=== PATIENT | male | born 1945 | race Caucasian/White ===

== ENCOUNTER 2017-06-08 04:13 | Observation (INO) ==
[2017-06-08] MEDS ORDERED: Aspirin 81 MG TAB.CHEW PO ONE (04:22)
[2017-06-08 04:45] LABS: Basophils % 0.3 %; Eosinophils # 0.3 K/mcL (0.0-0.6); Eosinophils % 3.3 %; Hematocrit 44.4 % (37.5-50.1); Hemoglobin 14.6 g/dL (12.9-16.9); Immature Granulocytes % 0.6 % (0-4); Lymphocytes # 1.7 K/mcL (0.6-4.6); Lymphocytes % 16.4 %; Mean Corpuscular HGB Conc 32.9 g/dL (31.6-35.5); Mean Corpuscular Volume 91.2 fL (83.0-100.0); Mean Platelet Volume 9.9 fL (9.4-12.4); Monocytes # 1.1 K/mcL (0.0-1.3); Monocytes % 10.2 %; Neutrophils # 7.1 K/mcL (1.6-8.9); Platelet Count 301 K/mcL (140-400); Red Blood Count 4.87 M/mcL (4.19-5.50); Red Cell Distribution Width 13.3 % (11.5-14.5); Segmented Neutrophils % 69.2 %
--- NOTE | 2017-06-08 04:46 | Emergency Department Note ---
Disposition Clinical Impression: Congestive heart failure Qualifiers: Heart failure type: combined systolic and diastolic Heart failure chronicity: acute on chronic Qualified Code(s): I50.43 - Acute on chronic combined systolic (congestive) and diastolic (congestive) heart failure Disposition: Still a Patient Referrals: Joe Crystal MD [Primary Care Provider] - Forms: ED Satisfaction Letter General Adult HPI - General Chief complaint: ED Shortness of Breath/Dyspnea Stated complaint: CHEST PAIN, JUMANA Time Seen by Provider: 06/08/17 04:22 Source: patient Limitations: no limitations - History of Present Illness Pain Scale: 0 - Related Data Home Medications Medication Instructions Recorded Confirmed Amlodipine Besylate 10 mg PO DAILY 03/01/16 03/01/16 Aspirin 81 mg PO HS 03/01/16 03/01/16 Atorvastatin Calcium [Lipitor] 80 mg PO HS 03/01/16 03/01/16 Carvedilol 12.5 mg PO BID 03/01/16 03/01/16 Clopidogrel [Plavix] 75 mg PO DAILY 03/01/16 03/01/16 Lactobacillus Combination No.8 1 tab PO DAILY 03/01/16 03/01/16 [Adult Probiotic] Lisinopril/Hydrochlorothiazide 1 each PO HS 03/01/16 03/01/16 [Zestoretic 20-25 mg Tablet] Nitroglycerin 0.4 mg SL Q5M PRN 03/01/16 03/01/16 metFORMIN [Glucophage] 750 mg PO BID 03/01/16 03/01/16 Allergies Allergy/AdvReac Type Severity Reaction Status Date / Time No Known Allergies Allergy Verified 03/01/16 09:26 Past Medical History - Past Medical History Medical history: Reports: coronary artery disease, diabetes, hyperlipidemia, hypertension, myocardial infarction, other Psychiatric history: Reports: no psych history - Social History Smoking Status: Former smoker Smokeless Tobacco Status: No Alcohol use: Reports: none Drug use: Reports: none Physical Exam - General Limitations: no limitations General appearance: alert Course - Reevaluation(s) Reevaluation #1: Attestation note I examined this patient and my medical decision-making was reviewed with the emergency medicine resident. I agree with the documented findings, disposition and treatment plan as described except to the extent set forth below. Patient seen with emergency medicine resident Dr. Moris Alves, Please see a copy of his note for details of the H&P, ED evaluation, management and disposition. I have independently evaluated the patient and confirmed appropriate portions of the history and physical exam. Briefly: 72-year-old male history of hypertension hypercholesterolemia coronary artery disease with for possibly 5 cardiac stents. The past several days patient's experiencing paroxysmal nocturnal dyspnea worsening dyspnea on exertion with decreased exercise tolerance. Episode of chest pain about a day or so ago which resolved with nitroglycerin. Here for further evaluation. Patient does not have any pedal edema does have bibasilar rales. EKG shows some T-wave inversion that is new compared to prior EKG in the lateral leads. Patient get aspirin and troponin oxygen screening labs chest x-ray and admission. Disposition pending Time: 04:45 Vital Signs Temperature 97.5 F L 06/08/17 04:14 Pulse Rate 67 06/08/17 04:14 Respiratory Rate 23 06/08/17 04:14 Blood Pressure 198/109 06/08/17 04:14 O2 Sat by Pulse Oximetry 96 06/08/17 04:14 Temperature 97.5 F L 06/08/17 04:14 Pulse Rate 67 06/08/17 04:14 Respiratory Rate 23 06/08/17 04:14 Blood Pressure 198/109 06/08/17 04:14 O2 Sat by Pulse Oximetry 96 06/08/17 04:14 Oxygen Delivery Oxygen Delivery Room Air
--- NOTE | 2017-06-08 04:47 | Emergency Department Note ---
Disposition Clinical Impression: Chest pain of uncertain etiology, Elevated troponin Acute exacerbation of CHF (congestive heart failure) Qualifiers: Heart failure type: unspecified Qualified Code(s): I50.9 - Heart failure, unspecified Disposition: Home, Self-Care Condition: Serious Referrals: Joe Crystal MD [Primary Care Provider] - Forms: ED Satisfaction Letter Time of Disposition: 06:07 Chest Pain HPI - General Chief Complaint: ED Shortness of Breath/Dyspnea Stated Complaint: CHEST PAIN, JUMANA Time Seen by Provider: 06/08/17 04:22 Source: patient Limitations: no limitations Vital Signs Reviewed: Yes Nursing Notes Reviewed: Yes - History of Present Illness HPI Narrative: Mr. Denton, 72 old male, presents from home for evaluation of dyspnea and chest pain. Patient had a single episode of chest pain approximately 24 hours ago. Described as a general substernal dullness, nonradiating, improved with a single sublingual nitroglycerin, no diaphoresis, similar to him at his prior RI. Dyspnea has been progressive for the past 4 days. Associated with dry cough. He notes worsened when laying flat. Unchanged prior to, during, and after his chest pain. PMH: Hypertension, hyperlipidemia, type 2 diabetes on oral antihyperglycemic. CAD with RI in 2015, aspirin and Plavix, 5 stents. Patient has an umbilical hernia that is well known to him for which he has no concerns. ROS: Positive: As above Negative: Fever, chills, nausea, vomiting, palpitations, abdominal pain, weakness, numbness, tingling, change in bowel or bladder, abdominal pain Severity scale (1-10): 0 - Related Data Home Medications Medication Instructions Recorded Confirmed Amlodipine Besylate 10 mg PO DAILY 03/01/16 03/01/16 Aspirin 81 mg PO 03/01/16 03/01/16 Atorvastatin Calcium [Lipitor] 80 mg PO 03/01/16 03/01/16 Carvedilol 12.5 mg PO BID 03/01/16 03/01/16 Clopidogrel [Plavix] 75 mg PO DAILY 03/01/16 03/01/16 Lactobacillus Combination No.8 1 tab PO DAILY 03/01/16 03/01/16 [Adult Probiotic] Lisinopril/Hydrochlorothiazide 1 each PO 03/01/16 03/01/16 [Zestoretic 20-25 mg Tablet] Nitroglycerin 0.4 mg SL Q5M PRN 03/01/16 03/01/16 metFORMIN [Glucophage] 750 mg PO BID 03/01/16 03/01/16 Allergies Allergy/AdvReac Type Severity Reaction Status Date / Time No Known Allergies Allergy Verified 03/01/16 09:26 All systems ED: reviewed and negative except as stated. Review of Systems: As Per HPI Chest Pain PMH - Past Medical History Medical history: Reports: coronary artery disease, diabetes, hyperlipidemia, hypertension, myocardial infarction, other Psychiatric history: Reports: no psych history - Social History Smoking Status: Former smoker Alcohol use: Reports: none Drug use: Reports: none Physical Exam Vital Signs Reviewed General: Patient is alert, oriented, and in no acute distress. Head: atraumatic, normocephalic Eye: normal appearance, no scleral icterus, no conjunctival injection ENT: mucous membranes moist, normal external ear exam Neck: normal inspection, trachea midline, full ROM Chest: normal inspection, symmetric chest rise Respiratory: Good respiratory effort. Bilateral breath sounds are diminished without wheezing, crackles, or rhonchi. Cardiovascular: Regular rate and rhythm. No clicks, rubs, gallops, or murmors. Normal heart sounds. BL radial pulses 2/4 and equal. No pedal edema. Abdomen: Bowel sounds present normoactive x-4 quadrants. Abdomen is soft, nondistended, and nontender. No guarding or rebound. Umbilical hernia present , reducible, painless. Musculoskeletal: Spontaneously moving all extremities. Skin: warm, dry, intact. Neuro: Alert and oriented x4. Sensation light touch intact. Psych: Patient's affect is appropriate for situation. - General Limitations: no limitations General appearance: alert Course Course Narrative: Patient presents with concerning history concerning for possibility of ACS versus congestive heart failure. Chest x-ray concerning for interstitial edema. Lung sounds on physical exam, however, were clear without rales or rhonchi patient has been a seated upright for some time and did note orthopnea per history. Troponin is slightly elevated at 0.05 in the setting of no renal disease. Suspect demand ischemia. EKG concerning for T-wave inversions in V4, V5, V6. I discussed the above with the patient. Discussed in detail the meaning of EKG , troponin, congestive heart failure on the context of his presenting dyspnea. He is in agreement for admission for continued evaluation and management. I discussed the patient with the admitting hospitalist, Dr. Richards, who agrees to accept the patient for continued evaluation and management. EKG dated 06/08/17 at 04:18 interpreted as sinus rhythm with rate of 66. Normal intervals. Left axis. T-wave inversions in leads V4, V5, V6 new from comparison EKG otherwise nonspecific ST-T changes. Compared to previous dated 08/11/2014 showing T-wave inversions as noted. Chest X-Ray 06/08/17 04:22 IMPRESSION: Moderate interstitial edema with small bilateral effusions. Multifocal patchy opacities may reflect asymmetric edema or focal infectious airspace disease. D/ / Marques Arana / Marques Arana Interpreting Provider: Marques Arana Vital Signs Temperature 97.5 F L 06/08/17 04:14 Pulse Rate 67 06/08/17 04:14 Respiratory Rate 23 06/08/17 04:14 Blood Pressure 198/109 06/08/17 04:14 O2 Sat by Pulse Oximetry 96 06/08/17 04:14 Temperature 97.5 F L 06/08/17 04:14 Pulse Rate 55 06/08/17 04:57 Respiratory Rate 17 06/08/17 04:57 Blood Pressure 177/103 06/08/17 04:57 O2 Sat by Pulse Oximetry 98 06/08/17 04:57 Oxygen Delivery Oxygen Delivery Room Air Chest Pain - Lab Data Result diagrams: 06/08/17 04:30 06/08/17 04:30 Lab Results 06/08/17 06/08/17 06/08/17 Range/Units 04:30 04:30 04:30 WBC 10.3 (4.3-11.1) K/mcL RBC 4.87 (4.19-5.50) M/mcL Hgb 14.6 (12.9-16.9) g/dL Hct 44.4 (37.5-50.1) % MCV 91.2 (83.0-100.0) fL MCH 30.0 (28.0-33.3) pg MCHC 32.9 (31.6-35.5) g/dL RDW 13.3 (11.5-14.5) % Plt Count 301 (140-400) K/mcL MPV 9.9 (9.4-12.4) fL Immature Gran % 0.6 (0-4) % Seg Neutrophils % 69.2 % Lymphocytes % 16.4 % Monocytes % 10.2 % Eosinophils % 3.3 % Basophils % 0.3 % Neutrophils # 7.1 (1.6-8.9) K/mcL Lymphocytes # 1.7 (0.6-4.6) K/mcL Monocytes # 1.1 (0.0-1.3) K/mcL Eosinophils # 0.3 (0.0-0.6) K/mcL Basophils # 0.0 (0.0-0.2) K/mcL Sodium 138 (136-145) mEq/L Potassium 4.2 (3.5-5.1) mEq/L Chloride 102 (98-107) mEq/L Carbon Dioxide 27 (23-29) mEq/L BUN 25 H (8-23) mg/dL Creatinine 0.96 (0.70-1.30) mg/dL Est GFR ( Amer) > 60 (> 60) Est GFR (Non-Af Amer) > 60 (> 60) BUN/Creatinine Ratio 26 (6-26) Glucose 152 H (70-105) mg/dL Calculated Osmolality 293 (280-300) Calcium 9.6 (8.6-10.3) mg/dL Troponin I 0.05 H* (< 0.04) ng/mL B-Natriuretic Peptide 495 H (Less than 100) pg/mL Heart Score - Score History: Slightly Suspicious EKG: Non Specific repolarisation Disturbance Age: Greater than 65 Risk Factors: Equal/Greater than 3 risk factor or history of atherosclerotic disease Troponin: Less than normal limit HEART Score Total: 5
[2017-06-08 05:17] LABS: BUN/Creatinine Ratio 26 (6-26); Blood Urea Nitrogen 25 mg/dL (8-23); Calcium 9.6 mg/dL (8.6-10.3); Carbon Dioxide 27 mEq/L (23-29); Chloride 102 mEq/L (98-107); Glucose 152 mg/dL (70-105); Osmolality,Calculated 293 (280-300); Potassium 4.2 mEq/L (3.5-5.1); Sodium 138 mEq/L (136-145); eGFR For African Americans > 60 (> 60); eGFR For Non-African Americans > 60 (> 60)
[2017-06-08 05:19] LABS: Troponin I 0.05 ng/mL (< 0.04)
[2017-06-08] MEDS ORDERED: Furosemide 40 MG/4 ML VIAL IVP ONE (05:50)
[2017-06-08] MEDS ORDERED: Nitroglycerin 1 INCH/GM PACKET TP ONE (05:50)
[2017-06-08] MEDS ORDERED: Nitroglycerin 0.4 MG TAB.SUBL SL PRN (10:26)
[2017-06-08] MEDS ORDERED: *HR* Dextrose 50 % in Water (Syg) 50 ML SYRINGE IVP PRN (10:29)
[2017-06-08] MEDS ORDERED: Dextrose Gel 15 GM/37.5 ML TUBE PO PRN ×2 (10:29)
[2017-06-08] MEDS ORDERED: D5% in Water 1,000 ML IVC PRN (10:29)
[2017-06-08] MEDS ORDERED: Naloxone 0.4 MG/ML INJ IVP PRN (10:30)
[2017-06-08] MEDS ORDERED: Acetaminophen 325 MG TABLET PO PRN (10:30)
[2017-06-08] MEDS ORDERED: *HR* HYDROcodone/Acet 5/325 mg TABLET PO PRN (10:30)
[2017-06-08 10:43] LABS: Estimated Average Glucose 174 mg/dl; Hemoglobin A1C 7.7 %
[2017-06-08] MEDS: Insulin LISPRO 300 UNITS/3 ML VIAL SQ SCH ×4 (11:07→20:30)
[2017-06-08] MEDS: Lactobacillus 1 EACH CAP.SPRINK PO SCH (11:36)
[2017-06-08] MEDS: Furosemide 40 MG/4 ML VIAL IVP SCH ×2 (15:54→20:23)
--- NOTE | 2017-06-08 20:34 | Internal Med History&Physical ---
Date of Encounter: 06/08/17 Time of Encounter: 09:47 Internal Medicine - H&P: HPI Chief complaint: Chest Pain, SOB Admitted From: Emergency Dept Plans for Post Hospital Care: Home History of present illness: Mr. Denton is a 72 year old white male with PMH of HTN, HLD, CAD s/p 5 stents most recently in 2014, who presented to ED this morning with SOB and chest pain. He states that he has had worsening dyspnea over the last 3-4 days, progressively worsening. He states that he has had a difficult time sleeping at night. He had an episode of chest pain about a day ago that improved with nitroglycerin. Pain was located substernally. He described pain as dull and non-radiating. He denies diaphoresis. He was unable to sleep at all last night and catch his breath, so he came to ED today. He denies any BLE edema. In the ED, EKG showed some new T-wave inversion in lateral leads. Initial troponin was slightly elevated at 0.05. CXR showed moderate interstitial edema with small bilateral pleural effusions. He denies any history of CHF. We were asked to admit patient for ACS ruleout and acute CHF. During my interview, he states that chest pain and SOB are both resolved. He is with normal work of breathing on room air. He has no complaints. Past Med Surg Social Fam HX - Past Medical History Attestation: Yes The following information was validated with the patient. Source: patient Medical history: coronary artery disease, diabetes, hyperlipidemia, hypertension , myocardial infarction, other Psychiatric history: no psych history - Past Surgical History Surgical History: angioplasty/stent - Social History Smoking Status: Former smoker Smokeless Tobacco Status: No Alcohol use: none Drug use: none - Family History Father Hx Family Cardiac Disorders: Yes Hx Family Endocrine Disorder: Yes Internal Medicine - H&P: Meds Aspirin 81 mg PO HS 03/01/16 [History] Atorvastatin Calcium [Lipitor] 80 mg PO HS 03/01/16 [History] Carvedilol 12.5 mg PO BID 03/01/16 [History] Clopidogrel [Plavix] 75 mg PO DAILY 03/01/16 [History] Lactobacillus Combination No.8 [Adult Probiotic] 1 tab PO DAILY 03/01/16 [ History] Lisinopril/Hydrochlorothiazide [Zestoretic 20-25 mg Tablet] 1 tab PO HS [History] Nitroglycerin 0.4 mg SL Q5M PRN 03/01/16 [History] Metformin HCl [Metformin HCl ER] 750 mg PO BID 06/08/17 [History] Pioglitazone HCl [Pioglitazone HCl] 30 mg PO DAILY 06/08/17 [History] 3 Allergy/AdvReac Type Severity Reaction Status Date / Time No Known Allergies Allergy Verified 03/01/16 09:26 - Constitutional Constitutional: no anorexia, no chills, no fatigue, no fever(s), no lethargy, no malaise, no weakness, no weight gain, no weight loss - EENT Eyes: no blurry vision, no diplopia, no discharge, no loss of vision, no pain, no other visual disturbances Ears: no decreased hearing, no ear pain Nose, mouth and throat: no dry mouth, no dysphagia, no facial pain, no mouth lesions, no mouth pain, no nasal congestion, no nasal discharge, no neck pain, no sinus pain, no sore throat - Cardiovascular Cardiovascular ROS IM: chest pain, dyspnea, dyspnea on exertion, no diaphoresis , no edema, no lightheadedness, no palpitations, no syncope - Respiratory Respiratory: cough, dyspnea, dyspnea on exertion, no hemoptysis, no wheezing, no chest congestion - Gastrointestinal Gastrointestinal: no abdominal pain, no change in bowel habits, no constipation , no diarrhea, no dysphagia, no heartburn, no hematemesis, no hematochezia, no melena, no nausea, no vomiting - Genitourinary Genitourinary ROS male: no difficulty urinating, no dysuria, no hematuria, no urinary frequency - Musculoskeletal Musculoskeletal ROS IM: no arthralgias, no joint swelling, no muscle cramps, no muscle weakness, no myalgias - Integumentary Integumentary IM: no erythema, no rash, no skin ulcer, no jaundice - Neurological Neurological ROS: no abnormal gait, no abnormal movements, no abnormal speech, no behavioral changes, no dizziness, no focal weakness, no headache(s), no vertigo - Psychiatric Psychiatric: no anxiety, no confusion, no depression - Endocrine Endocrine IM: no cold intolerance, no fatigue, no heat intolerance, no polydipsia, no polyphagia, no polyuria - Constitutional Vitals: Temp Pulse Resp BP Pulse Ox 98.1 F 69 18 129/69 94 06/08/17 19:13 06/08/17 19:13 06/08/17 19:13 06/08/17 19:13 06/08/17 19:13 General appearance: Present: cooperative, A&O X 3, pleasant, no acute distress, obese, answers questions appropriately - Head Head exam: Present: atraumatic, normocephalic - Eye Eye exam: Present: EOMI, PERRL. Absent: conjunctival injection, nystagmus, scleral icterus - ENT ENT exam: Present: mucous membranes moist, normal external ear exam, normal oropharynx - Neck Neck exam general surgery: Present: supple, trachea midline. Absent: lymphadenopathy, tenderness, thyromegaly - Respiratory Respiratory exam: Present: CTAB. Absent: accessory muscle use, rales, rhonchi, wheezes Additional comments: Normal WOB - Cardiovascular Cardiovascular exam: Present: RRR, +S1, +S2. Absent: diastolic murmur, gallop, rubs, systolic murmur Additional comments: No BLE edema - GI/Abdominal GI/Abdominal exam: Present: normal bowel sounds, soft. Absent: distended, hepatomegaly, mass, splenomegaly, tenderness - Neurological Exam Neurological exam: Present: alert, CN II-XII intact, oriented X3, no focal deficits, strengths equal and symetr throughout. Absent: facial droop, speech deficit - Psychiatric Psychiatric exam: Present: normal affect, normal mood. Absent: anxious, depressed - Skin Skin exam: Present: dry, intact, warm. Absent: cyanosis, rash Internal Med - H&P Results - Labs CBC & Chem 7: 06/09/17 04:15 06/09/17 04:15 Labs: Cardiac Enzymes 06/08/17 06/08/17 Range/Units 10:55 17:02 Troponin I 0.04 H* 0.06 H* (< 0.04) ng/mL - Assessment and plan (1) Chest pain of uncertain etiology Current Visit: Yes Status: Acute Assessment and plan: Admit for observation with telemetry. Trend troponin x 3. Cardiology consulted ; appreciate input. Obtain ECHO. Repeat EKG in AM. Continue aspirin and nitro. Start supplemental O2 PRN. Continue management of chronic HTN, HLD, and Type II DM as per below. Obtain repeat labwork in AM. (2) Elevated troponin Current Visit: Yes Status: Acute Assessment and plan: Management as per above. (3) Acute exacerbation of CHF (congestive heart failure) Current Visit: Yes Status: Acute Assessment and plan: New acute issue. Obtain ECHO. Continue lasix 40 mg IV BID. Repeat BMP in AM. Cardiology consulted as per above; appreciate input. Qualifiers: Heart failure type: unspecified Qualified Code(s): I50.9 - Heart failure, unspecified (4) HTN (hypertension) Current Visit: Yes Status: Chronic Assessment and plan: Continue home medications. Qualifiers: Hypertension type: essential hypertension Qualified Code(s): I10 - Essential (primary) hypertension (5) HLD (hyperlipidemia) Current Visit: Yes Status: Chronic Assessment and plan: Continue home medications. Qualifiers: Hyperlipidemia type: mixed hyperlipidemia Qualified Code(s): E78.2 - Mixed hyperlipidemia (6) DM type 2 (diabetes mellitus, type 2) Current Visit: Yes Status: Chronic Assessment and plan: Hold home medications. Start accuchecks and moderate dose SSI QID AC/HS. 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 Start lovenox 40 mg SQ QD. - Time Spent With Patient Total time spent is greater than 50% in coordination of care (as documented) at patient's floor/unit and/or counseling patient: 25 - 35 minutes
[2017-06-09 05:10] LABS: Basophils % 0.3 %; Eosinophils # 0.3 K/mcL (0.0-0.6); Eosinophils % 3.2 %; Hematocrit 41.2 % (37.5-50.1); Hemoglobin 13.7 g/dL (12.9-16.9); Immature Granulocytes % 0.3 % (0-4); Lymphocytes # 1.6 K/mcL (0.6-4.6); Lymphocytes % 16.9 %; Mean Corpuscular HGB Conc 33.3 g/dL (31.6-35.5); Mean Corpuscular Hemoglobin 29.5 pg (28.0-33.3); Mean Corpuscular Volume 88.8 fL (83.0-100.0); Monocytes # 1.3 K/mcL (0.0-1.3); Monocytes % 14.1 %; Neutrophils # 6.1 K/mcL (1.6-8.9); Platelet Count 280 K/mcL (140-400); Red Blood Count 4.64 M/mcL (4.19-5.50); Red Cell Distribution Width 13.5 % (11.5-14.5); Segmented Neutrophils % 65.2 %
[2017-06-09 05:29] LABS: BUN/Creatinine Ratio 32 (6-26); Blood Urea Nitrogen 31 mg/dL (8-23); Calcium 9.5 mg/dL (8.6-10.3); Carbon Dioxide 30 mEq/L (23-29); Chloride 99 mEq/L (98-107); Chol/HDL Ratio 2.6 (0-4.9); Cholesterol 119 mg/dL (< 200); Glucose 150 mg/dL (70-105); HDL Cholesterol 45 mg/dL (40-59); LDL Cholesterol,Calculated 57 mg/dL (0-99); Osmolality,Calculated 299 (280-300); Potassium 3.4 mEq/L (3.5-5.1); Sodium 140 mEq/L (136-145); Triglycerides 83 mg/dL (< 150); eGFR For African Americans > 60 (> 60); eGFR For Non-African Americans > 60 (> 60)
[2017-06-09] MEDS ORDERED: *HR* Enoxaparin 40 MG/0.4 ML SYRINGE SQ SCH (06:00)
[2017-06-09] MEDS: Insulin LISPRO 300 UNITS/3 ML VIAL SQ SCH ×4 (09:30→20:19)
[2017-06-09] MEDS: Furosemide 40 MG/4 ML VIAL IVP SCH ×3 (09:31→18:52)
[2017-06-09] MEDS: Lactobacillus 1 EACH CAP.SPRINK PO SCH (09:31)
--- NOTE | 2017-06-09 10:54 | Cardiology Consult Note ---
<Chiki Braswell - Last Filed: 06/09/17 12:03> Date of Encounter: 06/09/17 Time of Encounter: 10:15 Assessment and Plan (1) Elevated troponin Current Visit: Yes Status: Acute Chest pressure at rest, similar to prior PR. Trop 0.05, 0.04, 0.06 - adynamic, but history concerning for ACS EKG shows some T wave inversions in I, aVL, V4-6 - not on prior ECG Continue ASA, Plavix, statin, BB, and ACEI Repeat TTE pending shows no changes in function Given patient's significant cardiac history and EKG changes it would be best for further evaluation with [facility] - risks, benefits, and alternatives discussed. Patient is agreeable to proceed Plan for [facility] possibly today or tomorrow - NPO for now if able to get on the schedule today (2) CAD (coronary artery disease) Current Visit: Yes Status: Acute s/p RITO to mid circ, prox to distal RCA - 70% proximal and 60% distal stenosis of LAD Denies chest pain since prior PR until this episode Continue medical therapy Start Heparin drip and plan for [facility] Qualifiers: Coronary Disease-Associated Artery/Lesion type: [place] artery [place] vs. transplanted heart: [place] heart Associated angina: angina presence unspecified Qualified Code(s): I25.10 - Atherosclerotic heart disease of [place] coronary artery without angina pectoris (3) Acute exacerbation of CHF (congestive heart failure) Current Visit: Yes Status: Acute EF 40% in 2015 - new dyspnea, LE edema, weight gain, CXR with small bilateral effusions and concern for interstitial edema No prior exacerbations - decreased function noted with PR work-up in 2014 Pt reports to not adhering to any specific dietary plan Continue diuresis, I/O's, daily weights, salt and fluid restriction Qualifiers: Heart failure type: combined systolic and diastolic Qualified Code(s): I50.43 - Acute on chronic combined systolic (congestive) and diastolic ( congestive) heart failure (4) HLD (hyperlipidemia) Current Visit: Yes Status: Chronic Continue statin Qualifiers: Hyperlipidemia type: mixed hyperlipidemia Qualified Code(s): E78.2 - Mixed hyperlipidemia (5) HTN (hypertension) Current Visit: Yes Status: Chronic Continue medications Qualifiers: Hypertension type: essential hypertension Qualified Code(s): I10 - Essential (primary) hypertension (6) DM type 2 (diabetes mellitus, type 2) Current Visit: Yes Status: Chronic Management per primary team Qualifiers: Diabetes mellitus rodent exterminator insulin use: with usp use Diabetes mellitus complication status: without complication Qualified Code(s): E11.9 - Type 2 diabetes mellitus without complications; Z79.4 - rodent exterminator (current) use of insulin; Z79.4 - half-way (current) use of insulin; Z79.4 - rodent exterminator ( current) use of insulin; Z79.4 - half-way (current) use of insulin Discussion w patient/family: The assessment and plan as outlined above was discussed with the patient and/or family members who expressed understanding and agreement. All questions were answered. Thank you for involving us in the care of your patient. Please call with any questions. History of Present Illness Consult date: 06/08/17 Requesting physician: Brayden Watson Consult reason: Chest pain, elevated trop Chief complaint: Chest pain, dyspnea History of present illness: Mr. Denton is a 72 year old male with PMH of CAD s/p RITO x5 (RCA and circ), HTN , HLD, and DM, admitted to the hospital due to chest pain and dyspnea. He reports a 4 day history of dyspnea, worse at night with orthopnea and PND. Associated cold symptoms, dry cough, and chest congestion. Admits to 7# weight gain over the past 2-3 weeks. Also reports one episode of non-radiating, dull, central chest pressure at rest laying in bed. His pain would change some with positional changes in bed but then it would return. He took one sublingual nitroglycerin and the pain resolved. He denies dyspnea with the pain, diaphoresis, N/V, jaw pain, arm pain, or abdominal pain. He states this pain is similar to previous PR in 2015. Denies current chest pain and reports that his breathing is significantly improved. He is normally quiet active, reporting that he does yard work and gardening without any chest pain. Denies chest pain since his PR in 2014. Prior Cardiac Imaging: - TTE 05/2014: LVEF 40%, mild global and segmental wall abnormalities, mild diastolic dysfunction, mild MR, no pulm HTN - LHC 05/2014: severe 3 vessel disease, RITO placed to mid circ, proximal to distal in RCA. 70% stenosis proximal LAD, 60% stenosis distal LAD - Stress 12/2014: negative for ischemia, moderate intensity fixed deficit basal to mid inferior consistent with prior infarct Past Med Surg Social Fam HX - Past Medical History Medical history: coronary artery disease, diabetes, hyperlipidemia, hypertension , myocardial infarction, other Psychiatric history: no psych history - Past Surgical History Surgical History: angioplasty/stent - Social History Smoking Status: Former smoker Smokeless Tobacco Status: No Alcohol use: none Drug use: none - Family History Father Hx Family Cardiac Disorders: Yes Hx Family Endocrine Disorder: Yes Medications and Allergies Aspirin 81 mg PO HS 03/01/16 [History] Atorvastatin Calcium [Lipitor] 80 mg PO HS 03/01/16 [History] Carvedilol 12.5 mg PO BID 03/01/16 [History] Clopidogrel [Plavix] 75 mg PO DAILY 03/01/16 [History] Lactobacillus Combination No.8 [Adult Probiotic] 1 tab PO DAILY 03/01/16 [ History] Lisinopril/Hydrochlorothiazide [Zestoretic 20-25 mg Tablet] 1 tab PO HS [History] Nitroglycerin 0.4 mg SL Q5M PRN 03/01/16 [History] Metformin HCl [Metformin HCl ER] 750 mg PO BID 06/08/17 [History] Pioglitazone HCl [Pioglitazone HCl] 30 mg PO DAILY 06/08/17 [History] 3 Allergy/AdvReac Type Severity Reaction Status Date / Time No Known Allergies Allergy Verified 03/01/16 09:26 All Systems Review: The remainder of the systems were reviewed and are negative Physical Examination Vital Signs, Last 4 Hours Temp Pulse Resp BP Pulse Ox 06/09/17 07:41 98.0 F 64 18 162/79 98 General: Conversant, No Apparent Distress HEENT: Atraumatic, Normocephaly, Mucus Membranes Moist Neck: No JVD, Normal carotid pulses Cardiac: Reg Rate and Rhythm, Normal S1 and S2, No Murmur Lungs: Other (mild bibasilar crackles, otherwise normal lung sounds) Neuro: Alert and responsive, No focal deficits noted Abdomen: Soft, Non-Tender Skin: No rashes noted on visualized skin Musculoskeletal: No Chest Wall Tenderness Extremities: No Clubbing, No Cyanosis, Normal Pulses, Other (Pitting edema in LE bilaterally) Results 06/09/17 04:15 06/09/17 04:15 Lab Results 06/08/17 06/08/17 06/09/17 10:55 17:02 04:15 WBC 9.3 Hgb 13.7 Hct 41.2 Plt Count 280 Sodium Potassium Chloride Carbon Dioxide BUN Creatinine Glucose Calcium Troponin I 0.04 H* 0.06 H* B-Natriuretic Peptide 06/09/17 06/09/17 04:15 04:15 WBC Hgb Hct Plt Count Sodium 140 Potassium 3.4 L Chloride 99 Carbon Dioxide 30 H BUN 31 H Creatinine 0.97 Glucose 150 H Calcium 9.5 Troponin I B-Natriuretic Peptide 324 H Consult Discharge Plan - Plan Referrals: Joe Crystal MD [Primary Care Provider] - <Akil Hurtado - Last Filed: 06/09/17 12:45> Date of Encounter: 06/09/17 - Attending Attestation I examined this patient and my medical decision-making was reviewed with the Resident Physician. I agree with the documented findings, disposition and treatment plan as described except to the extent set forth below. CC: chest pain Pt reports sudden onset chest pain, occurred at rest, while in bed, dull ache in nature, 8/10 at most severe, associated with mild diaphoresis and shortness of breath, not affected by positional changes, after fifteen minutes got up and took SL ntg with relief of chest pain over three minutes. Pain has not reoccurred.HE has had progressive cold symptoms over last four days. He reports chest pain the same as before PR in 2014, which resolved following PCI with RITO x5 in LAD and RCA. PMH:reviewed, agree PE: pt seen and examined, agree with findings as above IMP/REc 1. Chest pain at rest, relieved with SL ntg, same as previous anginal pain. 2. CAD: known RCA and LAD disease, new ST seg depresion ant and lateral on EKG, mildly elevated troponin consistent with acute coronary syndrome, recommend LHC/ Poss to define coronary anatomy, possible revascularization. Risks and benefits discussed with pt, elects to proceed, will try to get on cath schedule today. 3. CHF: mild, responding to IV diuresis, now able to lie flat Assessment and Plan Discussion w patient/family: The assessment and plan as outlined above was discussed with the patient and/or family members who expressed understanding and agreement. All questions were answered. Thank you for involving us in the care of your patient. Please call with any questions. History of Present Illness History of present illness: Mr. Denton is a 72 year old male All Systems Review: The remainder of the systems were reviewed and are negative Physical Examination Vital Signs, Last 4 Hours Temp Pulse Resp BP Pulse Ox 06/09/17 10:54 97.5 F L 67 18 146/89 94 Results 06/09/17 04:15 06/09/17 04:15 Lab Results 06/08/17 06/09/17 06/09/17 17:02 04:15 04:15 WBC 9.3 Hgb 13.7 Hct 41.2 Plt Count 280 Sodium 140 Potassium 3.4 L Chloride 99 Carbon Dioxide 30 H BUN 31 H Creatinine 0.97 Glucose 150 H Calcium 9.5 Troponin I 0.06 H* B-Natriuretic Peptide 06/09/17 04:15 WBC Hgb Hct Plt Count Sodium Potassium Chloride Carbon Dioxide BUN Creatinine Glucose Calcium Troponin I B-Natriuretic Peptide 324 H
[2017-06-09] MEDS ORDERED: *HR* Heparin 5,000 UNIT/ML VIAL IVP ONE (11:39)
[2017-06-09] MEDS ORDERED: *HR* Heparin 5,000 UNIT/ML VIAL IVP PRN ×2 (11:39→12:00)
[2017-06-09] MEDS ORDERED: Heparin 25,000 UNIT/500 ML D5W 25,000 UNIT/500 ML BAG IVC SCH (11:45)
[2017-06-09] MEDS ORDERED: *HR* FentaNYL (PF) 100 MCG/2 ML VIAL ONE (16:28)
[2017-06-09] MEDS ORDERED: *HR* Midazolam HCl 2 MG/2 ML VIAL ONE (16:28)
[2017-06-09] MEDS ORDERED: Heparin 1,000 UNITS/500 mL 500 ML ONE (16:29)
[2017-06-09] MEDS ORDERED: ISOVUE-370 200 ML INFUS..BTL IV ONE ×2 (16:29→17:36)
[2017-06-09] MEDS ORDERED: 0.9 % Sodium Chloride 2,000 ML ONE (16:29)
[2017-06-09] MEDS ORDERED: Nitroglycerin 1,000 MCG/10 ML VIAL IV ONE (16:29)
[2017-06-09] MEDS ORDERED: *HR* Heparin 10,000 UNIT/10 ML VIAL ONE (16:29)
--- NOTE | 2017-06-09 17:03 | Electrocardiograph Report ---
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
[2017-06-09] MEDS ORDERED: Tirofiban 12.5 MG/250ML 12.5 MG/250 ML BAG ONE (17:18)
[2017-06-09] MEDS ORDERED: Water for inj. (sterile) 10 ML IV ONE (18:18)
[2017-06-09] MEDS ORDERED: Tirofiban 12.5 MG/250ML 12.5 MG/250 ML BAG IVC SCH (18:30)
--- NOTE | 2017-06-09 18:44 | Invasive Diagnostic Lab Proc ---
Name: Sumit Denton Date of Study: 06/09/2017 Date: 1945 Ht: 70.9in Medical Record#: [id number] Age: 72 Wt: 224.87lb Gender: Male BSA: 2.21 Order #: [id number] BMI: 31.48 Physicians Procedure Physician: Teresa Emerson MD Referring MD: Referring MD: Staff Name Position Time In Gabriela Reid RT (R) Scrub 04:49 PM Nancy Herrera RN Medical Records Manager 04:49 PM Rufina Blackmon RN Monitor 04:49 PM Salvatore Meehan RN Monitor 04:50 PM Indications Indication Non-Stemi Procedures Performed Procedure PRQ CARD RITO STENT W/ANGIO 1 VSL CORONARY ARTERY ANGIO S&I Pre-Procedure Checklist Informed consent is complete signed and on chart. H&P is on chart. ID band is on and ID verified with patient. Patient NPO for procedure The procedure was described for the patient and questions were answered. ECG is on chart. Plan of Care Patient will tolerate the procedure without complications. Adequate level of comfort will be maintained. Hemodynamics will remain stable Patient will recover from procedure without complications. Respiratory function will be maintained. Cardiac rhythm will remain stable. Patient temperature will be maintained. Patient and/or family have verbalized understanding of the procedure. Patient Education Chief Complaint/Reason for Test: Cardiac Cath Developmental Category: Geriatric (65+ years) Developmentally Appropriate for Age: Yes Learning Barriers: None Education Needs: Procedure Education Method: Verbal Information Taught: Cardiac Cath Educational Evaluation: Able to repeat information Intravenous Access Time IV Size Location DC'd Fluid/Drip Rate Units RN 18g 1 02/20" Patent On Arrival 0.9NaCl ml/hr Allergies Nka - No Known Allergies No Known Allergies NKA Vital Signs Time BP (mmHg) HR (bpm) O2 Sat. RR (bpm) LOC 04:51 PM / % 5 = Fully awake and oriented or at pre-proc level 04:51 PM / % 05:06 PM / % 5 = Fully awake and oriented or at pre-proc level 05:06 PM / % 5 = Fully awake and oriented or at pre-proc level 05:00 PM 177 / 96 66 95 % 05:05 PM 164 / 89 59 90 % 05:10 PM 164 / 87 61 95 % 05:15 PM 168 / 89 59 95 % 05:20 PM 165 / 95 67 94 % 05:25 PM 174 / 91 69 94 % 05:30 PM 161 / 89 69 97 % 05:35 PM 165 / 88 65 97 % 05:40 PM 166 / 90 67 97 % 05:45 PM 132 / 83 64 95 % 05:51 PM 163 / 88 69 95 % 05:55 PM 168 / 96 68 96 % 06:00 PM 169 / 103 68 96 % 06:06 PM 174 / 94 67 97 % Procedural Medications Time Medication Dose Units Method Given By 04:59 PM Versed 1 mg Intravenous Nancy Herrera RN 04:59 PM Fentanyl 50 mcg Intravenous Nancy Herrera RN 05:08 PM Lidocaine 2% 10 ml Subcutaneous Teresa Emerson MD 05:24 PM Aggrastat Bolus: 50 ml Intravenous Nancy Herrera RN 05:24 PM Aggrastat 12.5mg/250ml 18 ml/hr Intravenous Nancy Herrera RN 05:39 PM Heparin 4000 units Intravenous Nancy Herrera RN 06:17 PM Plavix 225 mg Orally Nancy Herrera RN 06:18 PM Ancef 1 gram Intravenous Nancy Herrera RN Roberto Score Preprocedure Postprocedure Activity 2- Moves 4 extremities sustained head lift Activity 2- Moves 4 extremities sustained head lift Circulation 2- SBP +/= 20 points of pre-anesthetic level Circulation 2- SBP +/= 20 points of pre-anesthetic level Consciousness 2- Awake and alert oriented x 3 Consciousness 2- Awake and alert oriented x 3 O2 Saturation 2- Able to maintain O2 satruation of 92% on room air O2 Saturation 2- Able to maintain O2 satruation of 92% on room air Respiratory 2- Able to deep breathe and cough well Respiratory 2- Able to deep breathe and cough well Total Score 10 Total Score 10 Contrast Agent: Isovue Diagnostic Contrast: 190 ml Total Contrast: 190 ml Fluoro Dose: 1712 mGy Activated Clotting Time Time Seconds to Clot 05:22 PM 05:26 PM 05:38 PM 161 Procedure Log Time Note Enter By 04:48 PM 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 Bilateral groin prepped with Chloraprep by Rufina Blackmon RN, then patient was draped. Skin intact. cedwards 04:50 PM Physican paged/called 16:50. cedwards 04:50 PM Physican responded and notified patient is ready 16:50 cedwards 04:50 PM Physician arrived 16:50 cedwards 04:50 PM Meet and greet completed cedwards 04:50 PM Sign in performed according to hospital policy. cedwards 04:50 PM Procedure start 16:50 cedwards 04:51 PM Time: 16:50 Patient comfortable and pain free: Yes cedwards 04:51 PM Time: 16:51LOC: 5 = Fully awake and oriented or at pre-proc level cedwards 04:54 PM Clinical Presentation: Unstable angina cedwards 04:57 PM CathStat 04:59 PM Vitals capture started with the following parameters, Patient=Adult, Interval=5 min, Initial Vffgtzld=316 mmHg, Deflation Rate=5 mmHg, Cuff placed on Right Arm 04:59 PM Time: 16:59 Versed 1 mg Intravenous Given by Nancy Herrera RN cedwards 05:00 PM Time: 16:59 Fentanyl 50 mcg Intravenous Given by Nancy Herrera RN cedwards 05:00 PM HR=66 bpm, BIUK=328/96 mmhg, SpO2=95.0 %, Comment=NSR 05:00 PM Recorded ECG: HR=66 Condition=Condition 1 05:03 PM Recorded ECG: HR=65 Condition=Condition 1 05:05 PM HR=59 bpm, IUQP=828/89 mmhg, SpO2=90.0 %, Comment=NSR 05:06 PM Time: 16:51 Patient comfortable and pain free: Yes cedwards 05:06 PM Time: 17:06LOC: 5 = Fully awake and oriented or at pre-proc level cedwards 05:07 PM Clinical Presentation: Unstable angina cedwards 05:08 PM Time out performed according to hospital policy cedwards 05:08 PM Time: 17:08 10 ml Lidocaine 2% to right groin Subcutaneous Given by Teresa Emerson MD cedwards 05:09 PM Micro-Introducer Kit utilized for sheath placement cedwards 05:10 PM Access obtained by percutaneous puncture. 6Fr 10cm Terumo [place] sheath placed in right Femoral artery. [id number] cedwards 05:10 PM HR=61 bpm, UNSJ=346/87 mmhg, SpO2=95.0 %, Comment=NSR 05:11 PM Pressure channel 1 zero failed. 05:11 PM Pressure channel 1 zeroed. 05:11 PM 5Fr FR 4 catheter inserted over the wire [facility] cedwards 05:12 PM 0.035 145cm [place] 3mmJ wire [id number] cedwards 05:12 PM Recorded Pressure: Ao, HR=60, Condition=Condition 1 (Aorta) Ao 152/81/110 05:12 PM Wire removed cedwards 05:12 PM RCA angiography performed in multiple views. cedwards 05:13 PM Catheter removed cedwards 05:14 PM 6Fr XB LAD 3.5 [place] Bright-Tip guide catheter was used to cannulate the PCI vessel successfully. reused? No cedwards 05:14 PM LCA angiography performed in multiple views. cedwards 05:15 PM HR=59 bpm, QSXI=012/89 mmhg, SpO2=95.0 %, Comment=NSR 05:15 PM Recorded Pressure: Ao, HR=60, Condition=Condition 1 (Aorta) Ao 158/78/108 05:16 PM Inflation device was opened. cedwards 05:16 PM .014 [employer] [place] 190cm guide wire across target lesion- successful. reused? No cedwards 05:18 PM 2.0 mm x 20 mm Emerge Monorail balloon across target lesion- successful. reused? No cedwards 05:19 PM Lesion found in Mid LAD. Pre Stenosis: 90 Pre MAHI Flow: 3: Complete and Brisk Flow/Perfusion cedwards 05:20 PM HR=67 bpm, SHEZ=500/95 mmhg, SpO2=94.0 %, Comment=NSR 05:21 PM Time: 17:06 Patient comfortable and pain free: Yes cedwards 05:21 PM Time: 17:06LOC: 5 = Fully awake and oriented or at pre-proc level cedwards 05:22 PM At 17:22 the ACT was >400 seconds. cedwards 05:22 PM redrawing ACT cedwards 05:24 PM Time: 17:24 Aggrastat Bolus: 50 ml Given by Asia Herrera Hwang pump cedwards 05:25 PM Time: 17:24 Aggrastat 12.5mg/250ml 18 ml/hr Intravenous Given by Nancy Herrera RN Hwang pump cedwards 05:25 PM HR=69 bpm, LLPA=783/91 mmhg, SpO2=94.0 %, Comment=NSR 05:26 PM At 17:26 the ACT was >400 seconds. cedwards 05:27 PM Recorded Pressure: Ao, HR=69, Condition=Condition 1 (Aorta) Ao 152/77/108 05:27 PM Balloon catheter removed intact. undeployed cedwards 05:28 PM 1.5 mm x 20 mm Emerge Monorail balloon across target lesion- successful. reused? No cedwards 05:30 PM HR=69 bpm, RUZB=122/89 mmhg, SpO2=97.0 %, Comment=NSR 05:30 PM Balloon inflated @ 12 [address] for 17 seconds cedwards 05:31 PM Balloon inflated @ 13 [place] for 13 seconds cedwards 05:31 PM Balloon inflated @ 12 [place] for 9 seconds cedwards 05:32 PM Balloon inflated @ 14 [place] for 9 seconds cedwards 05:32 PM Balloon inflated @ 14 [place] for 6 seconds cedwards 05:32 PM Balloon inflated @ 14 [place] for 7 seconds cedwards 05:32 PM Balloon inflated @ 14 [place] for 5 seconds cedwards 05:33 PM Balloon inflated @ 14 [place] for 10 seconds cedwards 05:33 PM Balloon catheter removed intact. cedwards 05:33 PM 2.0mm x 20mm Emerge reinserted cedwards 05:34 PM Recorded Pressure: Ao, HR=65, Condition=Condition 1 (Aorta) Ao 154/75/106 05:35 PM HR=65 bpm, FWJC=672/88 mmhg, SpO2=97.0 %, Comment=NSR 05:36 PM Balloon inflated @ 10 [place] for12 seconds cedwards 05:36 PM Time: 17:21 Patient comfortable and pain free: Yes cedwards 05:36 PM Balloon inflated @ 12 [place] for 9 seconds cedwards 05:37 PM Balloon inflated @ 12 [place] for 10 seconds cedwards 05:37 PM Balloon inflated @ 12 [place] for 9 seconds cedwards 05:38 PM Balloon inflated @ 14 [place] for 5 seconds cedwards 05:38 PM Balloon inflated @ 14 [place] for 6 seconds cedwards 05:38 PM At 17:38 the ACT was 161 seconds. cedwards 05:38 PM Balloon inflated @ 14 [place] for 6 seconds cedwards 05:39 PM Time: 17:39 Heparin 4000 units Intravenous Given by Nancy Herrera RN cedwards 05:40 PM Balloon catheter removed intact. cedwards 05:40 PM HR=67 bpm, OPKX=094/90 mmhg, SpO2=97.0 %, Comment=NSR 05:40 PM 2.5mm x 24mm Synergy drug-eluting stent across target lesion- successful Lot #[id number] cedwards 05:42 PM Stent removed intact. undeployed cedwards 05:42 PM 2.5 mm x 20 mm Emerge Monorail balloon across target lesion- successful. reused? No cedwards 05:44 PM Balloon inflated @ 10 [place] for 14 seconds cedwards 05:44 PM Balloon inflated @ 12 [place] for 11 seconds cedwards 05:44 PM Balloon inflated @ 12 [place] for 7 seconds cedwards 05:45 PM Balloon inflated @ 12 [place] for 10 seconds cedwards 05:45 PM HR=64 bpm, LSRT=174/83 mmhg, SpO2=95.0 %, Comment=NSR 05:45 PM Balloon inflated @ 14 [place] for 6 seconds cedwards 05:45 PM Balloon inflated @ 12 [place] for 5 seconds cedwards 05:46 PM Balloon inflated @ 12 [place] for 5 seconds cedwards 05:46 PM Balloon inflated @ 14 [place] for 7 seconds cedwards 05:47 PM Balloon inflated @ 15 [place] for 8 seconds cedwards 05:47 PM Balloon inflated @ 15 [place] for 5 seconds cedwards 05:47 PM Balloon catheter removed intact. cedwards 05:48 PM 6Fr Guidezilla advanced cedwards 05:49 PM 2.5mm x 24mm Synergy reinserted cedwards 05:51 PM HR=69 bpm, SBKT=632/88 mmhg, SpO2=95.0 %, Comment=NSR 05:51 PM Stent deployed @ 11 [address] for 11 seconds cedwards 05:51 PM Stent balloon reinflated @ 14 [place] for 14 seconds cedwards 05:51 PM Time: 17:36 Patient comfortable and pain free: Yes cedwards 05:52 PM Stent delivery system removed intact. cedwards 05:53 PM 3.0mm x 28mm Synergy drug-eluting stent across target lesion- successful Lot #[id number] cedwards 05:55 PM HR=68 bpm, HDPP=220/96 mmhg, SpO2=96.0 %, Comment=NSR 05:58 PM Stent removed intact. Undeployed cedwards 06:00 PM HR=68 bpm, FVYH=596/103 mmhg, SpO2=96.0 %, Comment=NSR 06:00 PM 2.5 mm x 20 mm Emerge Monorail balloon across target lesion- successful. reused? No cedwards 06:02 PM Lesion found in Proximal LAD. Pre Stenosis: 70 Pre MAHI Flow: 3: Complete and Brisk Flow/Perfusion cedwards 06:02 PM Balloon inflated @ 15 [place] for 14 seconds cedwards 06:03 PM Balloon inflated @ 16 [place] for 14 seconds cedwards 06:03 PM Balloon inflated @ 15 [place] for 5 seconds cedwards 06:04 PM Balloon inflated @ 16 [place] for 9 seconds cedwards 06:04 PM Balloon catheter removed intact. cedwards 06:04 PM Recorded Pressure: Ao, HR=71, Condition=Condition 1 (Aorta) Ao 139/57/89 06:05 PM 3.0mm x 28mm Synergy reinserted cedwards 06:06 PM HR=67 bpm, FJIY=269/94 mmhg, SpO2=97.0 %, Comment=NSR 06:06 PM Stent deployed @ 11 [address] for 12 seconds cedwards 06:06 PM Time: 17:51 Patient comfortable and pain free: Yes cedwards 06:07 PM Stent balloon reinflated @ 16 [address] for 10 seconds cedwards 06:07 PM Stent delivery system removed intact. cedwards 06:07 PM Recorded Pressure: Ao, HR=73, Condition=Condition 1 (Aorta) Ao 158/82/114 06:08 PM Guide wire removed intact. cedwards 06:08 PM Guidezilla catheter removed intact. cedwards 06:09 PM Guide catheter removed intact. cedwards 06:10 PM Procedure completed at 18:10 cedwards 06:10 PM Did you address MAHI flow and Dominance? Yes cedwards 06:10 PM Sign out completed: Radiation Dose 1711.50 mGy Fluoro Time: 24.9 Isovue 370 - 200ml contrast 190 ml given by Teresa Emerson MD. Complications: NoneCardiac Rehab Consult needed: YesConfirmed administered medications: Yes cedwards 06:11 PM Arterial sheath pulled, Angio-seal closure device used and was Successful [id number] S/N. cedwards 06:11 PM Estimated Blood Loss: minimal cedwards 06:11 PM Post ECG NSR cedwards 06:11 PM 18:11 Post Pulses Bilateral DP & PT 2+ cedwards 06:12 PM Information taught Cardiac Cath and PCI cedwards 06:12 PM Education needs Procedure, Plan of Care, Disease Process, and Responsibilities of Patient in Care cedwards 06:12 PM Learning barriers :None cedwards 06:12 PM Education Methods Verbal cedwards 06:12 PM Education evaluation Able to repeat information cedwards 06:12 PM Site status No bleeding/hematoma - Rt Groin as reported by Gabriela Reid RT (R) at 18:12 cedwards 06:12 PM Opsite applied cedwards 06:13 PM Delay to floor No cedwards 06:15 PM Report given to Gabriela GARZA Pt taken to 2A Room #2A16. 18:15 cedwards 06:16 PM Plavix, Effient or Brilinta given Yes cedwards 06:16 PM Complications: None cedwards 06:16 PM Fluoro Time: 24.9 cedwards 06:17 PM Isovue 370 - 200ml contrast [address] Emerson. cedwards 06:17 PM Radiation Dose 1711.5 mGy cedwards 06:17 PM Time: 18:17 Plavix 225 mg Orally Given by Nancy Herrera RN cedwards 06:18 PM Time: 18:18 Ancef 1 gram Intravenous Given by Nancy Herrera RN cedwards 06:24 PM Lesion found in Mid RCA. Pre Stenosis: 40 Pre MAHI Flow: cedwards 06:25 PM Proximal Left Anterior Descending Coronary Artery with 70% stenosis. If graft is supplying this territory, 0 % stenosis. cedwards 06:25 PM Mid/Distal Left Anterior Descending Coronary Artery and diagonal branches with 90% stenosis. If graft is supplying this area, 0 % stenosis cedwards 06:25 PM Right Coronary, Right Posterior Descending Arteries with Right Posterolateral and Acute Marginal branches with 40 % stenosis. If graft is supplying this area, 0 % stenosis cedwards 06:28 PM Coronary Dominance: right cedwards 06:32 PM Patient out of room: 18:32 cedwards 06:32 PM Family placed in consult room. cedwards Complications Complication None Hemodynamics Pressures Site Systolic/A Wave Diastolic/V Wave Mean AO 152 81 110 AO 158 78 108 AO 152 77 108 AO 154 75 106 AO 139 57 89 AO 158 82 114 Post Procedure Information Rhythm: NSR Post procedural instructions were given Closure Device Time Device Success/Fail 06/09/2017 6:19:00 PM Angio-Seal VIP Successful Site Checks Time Location Status Staff Sheath In? Note 06:12 PM Rt Groin No bleeding/hematoma Gabriela Reid RT (R) Pulses Time Site Pre-Procedure Post-Procedure Note Bilateral DP & PT 2+ Bilateral radial 2+ 6:11:00 PM Bilateral DP & PT 2+ Updated by Salvatore Meehan RN on 06/09/2017 6:34:49 PM electronically signed on 06/09/2017 6:35:43 PM with status of Final
[2017-06-09] MEDS ORDERED: Aspirin 81 MG TAB.CHEW PO SCH (21:00)
[2017-06-09] MEDS ORDERED: Saline Nasal Spray 44 ML BOTTLE NS PRN (21:08)
--- NOTE | 2017-06-09 21:20 | Internal Med Progress Note ---
Date of Encounter: 06/09/17 Time of Encounter: 09:07 - Assessment and plan (1) Chest pain of uncertain etiology Current Visit: Yes Status: Acute Assessment and plan: Chest pain resolved. Troponin trended to 0.06 at 12 hours. Cardiology consulted; appreciate input. Now on heparin drip. Repeat ECHO with no changes in function. Plan for cath today. Continue aspirin, nitro, and supplemental O2 PRN. Continue management of chronic HTN, HLD, and Type II DM as per below. Obtain repeat labwork in AM. (2) Elevated troponin Current Visit: Yes Status: Acute Assessment and plan: Management as per above. (3) Acute exacerbation of CHF (congestive heart failure) Current Visit: Yes Status: Acute Assessment and plan: Improved. ECHO with no changes in function. Decrease lasix to 40 mg IV QD. Repeat BMP in AM. Cardiology consulted as per above; appreciate input. Qualifiers: Heart failure type: combined systolic and diastolic Qualified Code(s): I50.43 - Acute on chronic combined systolic (congestive) and diastolic ( congestive) heart failure (4) HTN (hypertension) Current Visit: Yes Status: Chronic Assessment and plan: Continue home medications. Qualifiers: Hypertension type: essential hypertension Qualified Code(s): I10 - Essential (primary) hypertension (5) HLD (hyperlipidemia) Current Visit: Yes Status: Chronic Assessment and plan: Continue home medications. Qualifiers: Hyperlipidemia type: mixed hyperlipidemia Qualified Code(s): E78.2 - Mixed hyperlipidemia (6) DM type 2 (diabetes mellitus, type 2) Current Visit: Yes Status: Chronic Assessment and plan: Hold home medications. Continue accuchecks and moderate dose SSI QID AC/HS. Qualifiers: Diabetes mellitus penitentiary insulin use: with termite inspector use Diabetes mellitus complication status: without complication Qualified Code(s): E11.9 - Type 2 diabetes mellitus without complications; Z79.4 - care home (current) use of insulin; Z79.4 - care home (current) use of insulin; Z79.4 - manager terminal ( current) use of insulin; Z79.4 - care home (current) use of insulin (7) DVT prophylaxis Current Visit: Yes Status: Acute Assessment and plan: Moderate risk. Continue heparin drip as per above. - Time Spent With Patient Total time spent is greater than 50% in coordination of care (as documented) at patient's floor/unit and/or counseling patient: less than 15 minutes - Subjective Interval history: Patient had no acute events overnight. He continues to do well and wants to go home. He denies chest pain, SOB, fever, or chills. He has had good urine output. He has no new complaints. - Constitutional Vitals: Temp Pulse Resp BP Pulse Ox 98.0 F 63 16 144/85 89 06/09/17 19:58 06/09/17 19:58 06/09/17 19:58 06/09/17 19:13 06/09/17 19:58 General appearance: Present: cooperative, A&O X 3, pleasant, no acute distress, obese, answers questions appropriately - Respiratory Respiratory exam: Present: CTAB. Absent: accessory muscle use, rales, rhonchi, wheezes Additional comments: Normal WOB - Cardiovascular Cardiovascular exam: Present: RRR, +S1, +S2. Absent: diastolic murmur, gallop, rubs, systolic murmur Additional comments: No BLE edema - GI/Abdominal GI/Abdominal exam: Present: normal bowel sounds, soft. Absent: distended, hepatomegaly, mass, splenomegaly, tenderness - Psychiatric Psychiatric exam: Present: normal affect, normal mood. Absent: agitated, anxious, depressed - Skin Skin exam: Present: dry, intact, warm. Absent: cyanosis, rash Internal Medicine: Result - Labs CBC & Chem 7: 06/09/17 04:15 06/09/17 04:15 Labs: Short CBC 06/09/17 Range/Units 04:15 WBC 9.3 (4.3-11.1) K/mcL Hgb 13.7 (12.9-16.9) g/dL Hct 41.2 (37.5-50.1) % Plt Count 280 (140-400) K/mcL Neutrophils # 6.1 (1.6-8.9) K/mcL BMP 06/09/17 04:15 Sodium 140 Potassium 3.4 L Chloride 99 Carbon Dioxide 30 H BUN 31 H Creatinine 0.97 Glucose 150 H Calcium 9.5 - Impressions Impressions Echocardiogram Limited Views 06/09/17 10:46 Impressions: LVEF 40-45%. LV segmental wall motion abnormalities (previously seen on Echo 06/03/14). Normal LV chamber size and wall thickness. Normal right ventricular structure and function. There is a trivial to small pericardial effusion present seen along the inferior border of the RV. Although this is a limited study, there does not appear to be evidence for tamponade. Left Ventricular Wall Motion: Rest Echo Findings The basal inferior, mid inferior lateral and basal inferior lateral ellis were hypokinetic. All other wall segments showed normal motion. Findings: Study Quality * Technically adequate exam. ECG Findings * Normal sinus rhythm. Left Ventricle * LVEF 40-45%. * Normal LV chamber size and wall thickness. Right Ventricle * Normal right ventricular structure and function. Aorta * Normally sized aortic root. Pericardium * There is a trivial to small pericardial effusion present seen along the inferior border of the RV. Consult Discharge Plan - Plan Referrals: Joe Crystal MD [Primary Care Provider] - 06/17/17 10:45 am (Please follow up as schedule..)
[2017-06-10 05:05] LABS: Basophils % 0.3 %; Eosinophils # 0.2 K/mcL (0.0-0.6); Eosinophils % 1.8 %; Hematocrit 42.6 % (37.5-50.1); Hematocrit 43.1 % (37.5-50.1); Hemoglobin 14.2 g/dL (12.9-16.9); Hemoglobin 14.3 g/dL (12.9-16.9); Immature Granulocytes % 0.6 % (0-4); Lymphocytes # 1.1 K/mcL (0.6-4.6); Lymphocytes % 12.5 %; Mean Corpuscular HGB Conc 33.2 g/dL (31.6-35.5); Mean Corpuscular Hemoglobin 29.5 pg (28.0-33.3); Mean Platelet Volume 9.7 fL (9.4-12.4); Monocytes # 1.1 K/mcL (0.0-1.3); Monocytes % 12.3 %; Neutrophils # 6.3 K/mcL (1.6-8.9); Platelet Count 303 K/mcL (140-400); Red Blood Count 4.84 M/mcL (4.19-5.50); Red Cell Distribution Width 13.8 % (11.5-14.5); Segmented Neutrophils % 72.5 %
[2017-06-10 05:29] LABS: BUN/Creatinine Ratio 28 (6-26); BUN/Creatinine Ratio 30 (6-26); Blood Urea Nitrogen 33 mg/dL (8-23); Blood Urea Nitrogen 34 mg/dL (8-23); Calcium 9.3 mg/dL (8.6-10.3); Carbon Dioxide 27 mEq/L (23-29); Chloride 103 mEq/L (98-107); Glucose 191 mg/dL (70-105); Osmolality,Calculated 300 (280-300); Potassium 3.7 mEq/L (3.5-5.1); Sodium 139 mEq/L (136-145); eGFR For African Americans > 60 (> 60); eGFR For Non-African Americans > 60 (> 60)
[2017-06-10 05:32] LABS: Troponin I 0.09 ng/mL (< 0.04)
--- NOTE | 2017-06-10 05:58 | Electrocardiograph Report ---
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
[2017-06-10] MEDS: Lactobacillus 1 EACH CAP.SPRINK PO SCH (08:07)
[2017-06-10] MEDS: Insulin LISPRO 300 UNITS/3 ML VIAL SQ SCH ×2 (08:07→11:36)
--- NOTE | 2017-06-10 08:41 | Cardiology Progress Note ---
<Chiki Braswell R - Last Filed: 06/10/17 13:01> Date of Encounter: 06/10/17 Time of Encounter: 08:20 Assessment and Plan (1) Elevated troponin Status: Acute Chest pressure at rest, similar to prior ND. Trop 0.05, 0.04, 0.06 - adynamic, but history concerning for ACS EKG shows some T wave inversions in I, aVL, V4-6 - not on prior ECG Continue ASA, Plavix, statin, BB, and ACEI Repeat TTE pending shows no changes in function LHC with RITO x2 to prox and mid LAD Incision site and bandage clean, dry, and intact Recommend continuing ASA and Plavix uninterrupted for one year Continue current other medical therapy as well Follow-up with Cardiology Cath discharge instruction below: RISK FACTORS: STOP SMOKING: If you smoke, STOP. Smoking or tobacco use significantly increases your risk of heart disease because nicotine causes the arteries to narrow or constrict. It also causes fats to stick to the artery. Your chances of having a heart attack are greatly increased if you continue to smoke. For more information, call the education line for smoking cessation 7-254-DRZXPXS EAT A LOW FAT/CHOLESTEROL/SODIUM DIET: This diet may help reduce your chances of having a heart attack. LIFTING: Avoid lifting anything more than 10 pounds for 5-7 days Prior to straining, laughing, sneezing and/or coughing, apply manual pressure directly over insertion site. ACTIVITY: You may walk or climb stairs as tolerated You can resume sexual activity as tolerated In general, you are encouraged to engage in a minimum of 30 minutes or more of moderate intensity physical activity, such as brisk walking, daily or at least 3 -4 times weekly BATHING Do not submerge the site into water (bath tub, hot tub, swimming pool) for 1 week. This can be a source for infection into the blood stream. You may shower after 24 hours SITE CARE: After 24 hours, you may remove the dressing and leave the site open to air. Keep the site clean and dry. Clean gently and pat dry. You can expect bruising and tenderness that gradually resolve within a week or two. Return to work as instructed per your physician Resume driving as instructed per physician Keep all scheduled follow up appointments Resume medications as instructed IMPORTANT: If prescribed a Platelet Aggregation Inhibitor such as, Plavix, Brilinta or Effient: Duration of therapy is minimum one year These medications are often used in combination with Aspirin in prevention of future heart attacks Never discontinue unless consult with your Manager [facility] STROKE (CVA) Risk factors for a stroke are: Age, cigarette smoking, diabetes, excessive alcohol consumption, family history, high blood pressure, overweight, physical inactivity, prior stroke, heart attack, diagnosis of carotid artery stenosis or other artery disease. Warning signs: Sudden numbness or weakness of the face, arm or leg; especially on one side of the body, sudden confusion, trouble speaking or understanding, sudden trouble seeing in one or both eyes, sudden trouble walking, dizziness, loss of balance or coordination, sudden severe headache with no cause. Call 911 or go to the Emergency Room. CONGESTIVE HEART FAILURE: If you have been diagnosed with Congestive Heart Failure (CHF) and your symptoms return, make an appointment with your physician Weigh yourself daily. Notify your physician if you have a weight gain of two or more pounds in one day or five or more pounds in one week. If you experience any difficulty breathing, please call 911 BLEEDING: Although the risk of bleeding is minimal, it can happen. If you have any bleeding from the site, apply firm pressure above the puncture site for 10-15 minutes. If the bleeding does not stop, continue manual pressure and call 911 Contact your physician if: You develop a fever greater than 101 degrees Fahrenheit Your site becomes reddened or has any drainage You have an increase in pain or burning at the site or if a large knot forms at the site. If you experience chest pain, shortness of breath, dizziness, or extreme tiredness, stop the activity and rest. Please notify your physicians office if you experience any of these symptoms and they are not relieved by rest please call 911! (2) CAD (coronary artery disease) Status: Acute s/p RITO x2 to prox and mid LAD Previous RITO to mid circ, prox to distal RCA - 70% proximal and 60% distal stenosis of LAD Continue medical therapy Qualifiers: Coronary Disease-Associated Artery/Lesion type: ute artery [place] vs. transplanted heart: ute heart Associated angina: angina presence unspecified Qualified Code(s): I25.10 - Atherosclerotic heart disease of ute coronary artery without angina pectoris (3) Acute exacerbation of CHF (congestive heart failure) Status: Resolved EF 40% in 2015 - new dyspnea, LE edema, weight gain, CXR with small bilateral effusions and concern for interstitial edema Repeat TTE shows no changes - exacerbation secondary to heart strain in setting of CAD now s/p RITO placement No prior exacerbations - decreased function noted with ND work-up in 2015 Pt reports to not adhering to any specific dietary plan Recommend daily weights at home. Salt and fluid restriction Qualifiers: Heart failure type: combined systolic and diastolic Qualified Code(s): I50.43 - Acute on chronic combined systolic (congestive) and diastolic ( congestive) heart failure (4) HLD (hyperlipidemia) Status: Chronic Continue statin Qualifiers: Hyperlipidemia type: mixed hyperlipidemia Qualified Code(s): E78.2 - Mixed hyperlipidemia (5) HTN (hypertension) Status: Chronic Continue medications Qualifiers: Hypertension type: essential hypertension Qualified Code(s): I10 - Essential (primary) hypertension (6) DM type 2 (diabetes mellitus, type 2) Status: Chronic Management per primary team Qualifiers: Diabetes mellitus manager intermediate insulin use: with manager intermediate use Diabetes mellitus complication status: without complication Qualified Code(s): E11.9 - Type 2 diabetes mellitus without complications; Z79.4 - jail (current) use of insulin; Z79.4 - jail (current) use of insulin; Z79.4 - middle or intermediate school principal ( current) use of insulin; Z79.4 - middle or intermediate school principal (current) use of insulin Discussion w patient/family: The assessment and plan as outlined above was discussed with the patient and/or family members who expressed understanding and agreement. All questions were answered. Thank you for involving us in the care of your patient. Please call with any questions. Subjective Principal diagnosis: CAD Interval history: Pt seen and examined. Reports he is doing well with no complaints. States his breathing is improving. Denies chest pain/pressure, jaw pain, arm pain, diaphoresis, or N/V. His edema continues to improve. Incision site and bandage are clean, dry, and intact. Denies fevers, chills, swelling near site, or erythema to skin. Objective Vital Signs, Last 4 Hours Temp Pulse Resp BP Pulse Ox 06/10/17 07:16 97.6 F 59 18 153/87 94 06/10/17 04:49 98.2 F 58 18 138/80 92 General: Conversant, No Apparent Distress HEENT: Atraumatic, Normocephaly, Mucus Membranes Moist Neck: No JVD, Normal carotid pulses Cardiac: Reg Rate and Rhythm, Normal S1 and S2, No Murmur Lungs: Normal Breath Sounds, No Wheeze, Rales, Rhonchi Neuro: Alert and responsive, No focal deficits noted Abdomen: Soft, Non-Tender Skin: No rashes noted on visualized skin Musculoskeletal: No Chest Wall Tenderness Extremities: No Clubbing, No Cyanosis, Normal Pulses, Other (Mild LE edema - much improved) Results 06/10/17 04:18 06/10/17 04:18 Lab Results 06/09/17 06/10/17 06/10/17 19:44 04:18 04:18 WBC Hgb 14.2 Hct 42.6 Plt Count 313 APTT 77.0 H Sodium Potassium Chloride Carbon Dioxide BUN 34 H Creatinine 1.14 Glucose Calcium Troponin I 0.09 H* 06/10/17 06/10/17 04:18 04:18 WBC 8.7 Hgb 14.3 Hct 43.1 Plt Count 303 APTT Sodium 139 Potassium 3.7 Chloride 103 Carbon Dioxide 27 BUN 33 H Creatinine 1.17 Glucose 191 H Calcium 9.3 Troponin I Consult Discharge Plan - Plan Instructions: Chest Pain (DC), Left Heart Catheterization (DC) Additional Instructions: Follow up with PCP in 2-3 days after discharge. Follow up with cook mess as directed. Referrals: [facility] [Provider Group] (Office will call you with a follow up appointment) Joe Crystal MD [Primary Care Provider] - 06/17/17 10:45 am (Please follow up as schedule..) <Akil Hurtado - Last Filed: 06/12/17 08:38> Date of Encounter: 06/12/17 Time of Encounter: 11:00 Assessment and Plan Discussion w patient/family: The assessment and plan as outlined above was discussed with the patient and/or family members who expressed understanding and agreement. All questions were answered. Thank you for involving us in the care of your patient. Please call with any questions. Objective Vital Signs, Last 4 Hours Temp Pulse Resp BP Pulse Ox 06/10/17 10:59 97.5 F L 62 18 128/78 95 Results 06/10/17 04:18 06/10/17 04:18 Lab Results 06/09/17 06/10/17 06/10/17 19:44 04:18 04:18 WBC Hgb 14.2 Hct 42.6 Plt Count 313 APTT 77.0 H Sodium Potassium Chloride Carbon Dioxide BUN 34 H Creatinine 1.14 Glucose Calcium Troponin I 0.09 H* 06/10/17 06/10/17 04:18 04:18 WBC 8.7 Hgb 14.3 Hct 43.1 Plt Count 303 APTT Sodium 139 Potassium 3.7 Chloride 103 Carbon Dioxide 27 BUN 33 H Creatinine 1.17 Glucose 191 H Calcium 9.3 Troponin I Attestation Statement - Attestation Attestation: I examined this patient and my medical decision-making was reviewed with the Resident Physician. I agree with the documented findings, disposition and treatment plan as described except to the extent set forth below. CC: chest pain, shortness of breath Pt reports chest pain resolved, no shortness of breath. He is ambulatory in hallway without compliants, feels much better. PE: pt seen and examined, agree with documentation, cath site clean and dry, no hematoma IMP; 1l NSTEMI: symptoms resolved post PCI with RITO x2 to prox and mid LAD, continue optimal medical tx, dual antiplatelet tx x 1 year. PT has follow up scheduled in our office, will assess for cardiac rehab at that time.
[2017-06-10] MEDS ORDERED: Furosemide 40 MG/4 ML VIAL IVP SCH (09:00)
[2017-06-10 11:04] VITALS: BP 128/78
--- NOTE | 2017-06-10 12:48 | Discharge Summary ---
- NOTES TO OUTPATIENT PROVIDER Notes to Outpatient Provider: Follow up with PCP in 2-3 days after discharge. Consider switching pioglitazone to alternative DM medication due to CV/CHF risks. Follow up with bilingual nanny as directed. Orders not resulted at time of discharge: Pending orders 06/09/17 18:25 ECG 12 lead ECG [ECG] Stat Date of Encounter: 06/10/17 Time of Encounter: 12:46 - Discharge Diagnosis (1) Chest pain of uncertain etiology Priority: Primary Status: Resolved (2) Elevated troponin Priority: Secondary Status: Acute (3) Acute exacerbation of CHF (congestive heart failure) Priority: Secondary Status: Resolved Qualifiers: Heart failure type: combined systolic and diastolic Qualified Code(s): I50.43 - Acute on chronic combined systolic (congestive) and diastolic ( congestive) heart failure (4) HTN (hypertension) Priority: Secondary Status: Chronic Qualifiers: Hypertension type: essential hypertension Qualified Code(s): I10 - Essential (primary) hypertension (5) HLD (hyperlipidemia) Priority: Secondary Status: Chronic Qualifiers: Hyperlipidemia type: mixed hyperlipidemia Qualified Code(s): E78.2 - Mixed hyperlipidemia (6) DM type 2 (diabetes mellitus, type 2) Priority: Secondary Status: Chronic Qualifiers: Diabetes mellitus local intermodal truck driver insulin use: with local intermodal truck driver use Diabetes mellitus complication status: without complication Qualified Code(s): E11.9 - Type 2 diabetes mellitus without complications; Z79.4 - alf (current) use of insulin; Z79.4 - alf (current) use of insulin; Z79.4 - alf ( current) use of insulin; Z79.4 - ocean transportation intermediary (current) use of insulin (7) DVT prophylaxis Priority: Secondary Status: Acute Hospital course: Mr. Denton is a 72 year old male admitted for ACS and acute CHF. He was admitted for observation to general medical floor with telemetry. Cardiology was consulted. Troponin trended up at 12 hours. He was started on IV lasix for diuresis. He had good UOP and SOB and edema resolved. Cardiology thought that CHF was secondary to heart strain in the setting of ACS. ECHO showed no changes from previous. He was taken to labor relations director, where he had 2 stents placed in the proximal and mid-LAD. He will continue aspirin and plavix uninterrupted for 1 year. He tolerated procedure well. Lasix was tapered down. Patient is doing well today with no complaints. He wants to go home. He will follow up with PCP in 2-3 days after discharge. Pioglitazone can be adjusted to alternative DM medication without CV/CHF risk at that time. Patient has met maximum benefit of this hospitalization and will be discharged home in stable condition. Discharge discussed with: patient, family, nurse, case management, senior science consultant, other (Pharmacist) - Time Spent with Patient Total time spent providing and/or coordinating discharge services: Less than 30 minutes - Discharge Medications Home Medications: Aspirin 81 mg PO HS 03/01/16 [History] Atorvastatin Calcium [Lipitor] 80 mg PO HS 03/01/16 [History] Carvedilol 12.5 mg PO BID 03/01/16 [History] Clopidogrel [Plavix] 75 mg PO DAILY 03/01/16 [History] Lactobacillus Combination No.8 [Adult Probiotic] 1 tab PO DAILY 03/01/16 [ History] Lisinopril/Hydrochlorothiazide [Zestoretic 20-25 mg Tablet] 1 tab PO HS [History] Nitroglycerin 0.4 mg SL Q5M PRN 03/01/16 [History] Metformin HCl [Metformin HCl ER] 750 mg PO BID 06/08/17 [History] Pioglitazone HCl 30 mg PO DAILY 06/08/17 [History] Allergies/Adverse Reactions: 3 Allergy/AdvReac Type Severity Reaction Status Date / Time No Known Allergies Allergy Verified 03/01/16 09:26 Date of admission: 06/08/17 06:15 Primary care physician: Joe Crystal MD Consults: 06/08/17 10:42 Consult to Cardiology [CONS] Routine Comment: Consulting Provider: [facility] Reason for Consult: Chest Pain, Elevated Troponin, New Onset Acute CHF. Please evaluate patient and make recommendations given history of LA + stents in 2015. Initial troponin 0.05. pBNP = 495. Call Completed: Yes 06/09/17 11:40 Consult to Cardiac Rehabilitation-Phase1 [CONS] Routine Comment: Reason for Consult: AMI Call Completed: Yes Consult to Nurse Navigator [CONS] Routine Comment: 06/09/17 18:25 Consult to Cardiac Rehabilitation-Phase1 [CONS] Routine Comment: Reason for Consult: post op PCI Call Completed: Yes Discharging clinician: Brayden P Kasundra Anticipated date of discharge: 06/10/17 - Constitutional Vitals: Temp Pulse Resp BP Pulse Ox 97.5 F L 62 18 128/78 95 06/10/17 10:59 06/10/17 10:59 06/10/17 10:59 06/10/17 10:59 06/10/17 10:59 General appearance: Present: cooperative, A&O X 3, pleasant, no acute distress, obese, answers questions appropriately - Respiratory Respiratory exam: Present: CTAB. Absent: accessory muscle use, rales, rhonchi, wheezes Additional comments: Normal WOB - Cardiovascular Cardiovascular exam: Present: RRR, +S1, +S2. Absent: diastolic murmur, gallop, rubs, systolic murmur Additional comments: No BLE edema - GI/Abdominal GI/Abdominal exam: Present: normal bowel sounds, soft. Absent: distended, hepatomegaly, mass, splenomegaly, tenderness - Psychiatric Psychiatric exam: Present: normal affect, normal mood. Absent: agitated, anxious, depressed - Skin Skin exam: Present: dry, intact, warm. Absent: cyanosis, rash - Patient Status Disposition: Home, Self-Care Condition: Good Functional capacity at discharge: independent ambulation Overall status at discharge: patient is back to baseline - Discharge Instructions Follow Up With: Joe Crystal MD [Primary Care Provider] - 06/17/17 10:45 am (Please follow up as schedule..) Additional Instructions: Follow up with PCP in 2-3 days after discharge. Follow up with bilingual nanny as directed. - Diet and Activity Activity: resume usual activities as tolerated Diet: diabetic diet, low fat, low cholesterol, low salt diet, other (Cardiac Diet)
--- NOTE | 2017-06-13 17:40 | Electrocardiograph Report ---
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
== END 2017-06-10 13:54 | disposition home or self-care (01) ==
LOC: 2ANU 04:13 → EMEROO 04:13 → 2ANU 06:37
PROVIDERS: ADMIT Internal Medicine; ATTEND Internal Medicine

== ENCOUNTER 2020-11-13 14:09 | Inpatient (IN) ==
[2020-11-13] MEDS ORDERED: 0.9 % Sodium Chloride 1,000 ML IVC ONE (15:02)
[2020-11-13] MEDS ORDERED: Isovue-370 500 ML BOTTLE IVP ONE (15:28)
[2020-11-13 15:53] LABS: Basophils % 0.2 %; Eosinophils # 0.2 K/mcL (0.0-0.6); Eosinophils % 1.5 %; Hematocrit 30.5 % (37.5-50.1); Hemoglobin 9.6 g/dL (12.9-16.9); Immature Granulocytes % 0.4 % (0-4); Lymphocytes # 1.4 K/mcL (0.6-4.6); Lymphocytes % 14.1 %; Mean Corpuscular HGB Conc 31.5 g/dL (31.6-35.5); Mean Corpuscular Hemoglobin 27.4 pg (28.0-33.3); Mean Corpuscular Volume 87.1 fL (83.0-100.0); Mean Platelet Volume 10.3 fL (9.4-12.4); Monocytes # 0.8 K/mcL (0.0-1.3); Monocytes % 8.5 %; Neutrophils # 7.4 K/mcL (1.6-8.9); Platelet Count 240 K/mcL (140-400); Red Cell Distribution Width 15.9 % (11.5-14.5); Segmented Neutrophils % 75.3 %; White Blood Count 9.8 K/mcL (4.3-11.1)
[2020-11-13 16:22] LABS: BUN/Creatinine Ratio 26 (6-26); Blood Urea Nitrogen 24 mg/dL (8-23); Calcium 8.9 mg/dL (8.6-10.3); Carbon Dioxide 25 mEq/L (23-29); Chloride 100 mEq/L (98-107); Glucose 159 mg/dL (70-105); Osmolality,Calculated 283 (280-300); Potassium 4.1 mEq/L (3.5-5.1); Sodium 133 mEq/L (136-145); Troponin I < 0.03 ng/mL (< 0.04); eGFR For African Americans > 60 (> 60); eGFR For Non-African Americans > 60 (> 60)
[2020-11-13] MEDS ORDERED: Naloxone 0.4 MG/ML INJ IVP PRN (17:34)
[2020-11-13] MEDS ORDERED: Ondansetron 4 MG/2 ML VIAL IVP PRN (17:34)
[2020-11-13] MEDS ORDERED: Nitroglycerin 0.4 MG TAB.SUBL SL PRN (17:50)
[2020-11-13] MEDS ORDERED: Diphenoxylate/Atropine 1 TAB TABLET PO PRN (17:50)
[2020-11-13] MEDS ORDERED: *HR* Dextrose 50 % in Water (Syg) 50 ML SYRINGE IVP PRN (17:51)
[2020-11-13] MEDS ORDERED: D5% in Water 1,000 ML IVC PRN (17:51)
[2020-11-13] MEDS ORDERED: Dextrose Gel 15 GM/37.5 ML TUBE PO PRN ×2 (17:51)
[2020-11-13 18:14] LABS: INR 1.9; Prothrombin Time 21.1 Seconds (9.4-12.1)
[2020-11-13] MEDS: carvediloL 6.25 MG TABLET PO SCH (21:10)
[2020-11-14 01:35] LABS: Basophils % 0.2 %; Eosinophils # 0.1 K/mcL (0.0-0.6); Eosinophils % 0.8 %; Hematocrit 26.2 % (37.5-50.1); Hemoglobin 8.4 g/dL (12.9-16.9); Immature Granulocytes % 0.6 % (0-4); Lymphocytes # 1.4 K/mcL (0.6-4.6); Lymphocytes % 13.6 %; Mean Corpuscular HGB Conc 32.1 g/dL (31.6-35.5); Mean Corpuscular Hemoglobin 27.7 pg (28.0-33.3); Mean Corpuscular Volume 86.5 fL (83.0-100.0); Mean Platelet Volume 10.5 fL (9.4-12.4); Monocytes # 0.7 K/mcL (0.0-1.3); Monocytes % 6.9 %; Neutrophils # 7.9 K/mcL (1.6-8.9); Platelet Count 218 K/mcL (140-400); Red Blood Count 3.03 M/mcL (4.19-5.50); Red Cell Distribution Width 15.9 % (11.5-14.5); Segmented Neutrophils % 77.9 %; White Blood Count 10.2 K/mcL (4.3-11.1)
[2020-11-14 01:44] LABS: INR 1.7; Prothrombin Time 19.3 Seconds (9.4-12.1)
[2020-11-14 02:01] LABS: Estimated Average Glucose 146 mg/dl; Hemoglobin A1C 6.7 %
[2020-11-14 02:03] LABS: Alanine Aminotransferase 21 Units/L (7-52); Albumin 3.4 g/dL (3.5-5.7); Albumin/Globulin Ratio 1.7 (1.1-2.2); Alkaline Phosphatase 37 Units/L (34-104); Aspartate Amino Transferase 17 Units/L (13-39); BUN/Creatinine Ratio 26 (6-26); Bilirubin,Total 0.8 mg/dL (0.3-1.0); Blood Urea Nitrogen 23 mg/dL (8-23); Calcium 8.3 mg/dL (8.6-10.3); Carbon Dioxide 24 mEq/L (23-29); Chloride 100 mEq/L (98-107); Glucose 141 mg/dL (70-105); Magnesium 1.6 mg/dL (1.6-2.6); Osmolality,Calculated 280 (280-300); Phosphorous 2.9 mg/dL (2.7-4.5); Potassium 3.8 mEq/L (3.5-5.1); Sodium 132 mEq/L (136-145); Total Protein 5.4 g/dL (6.4-8.9); eGFR For African Americans > 60 (> 60); eGFR For Non-African Americans > 60 (> 60)
[2020-11-14 02:05] LABS: Iron 13 mcg/dL (65-175)
[2020-11-14 02:21] LABS: Ferritin 16 ng/mL (20-250)
[2020-11-14 02:42] LABS: Folate > 22.3 ng/mL (3.0-16.0); Vitamin B12 807 pg/mL (250-1100)
[2020-11-14 06:28] LABS: % Iron Saturation 4 % (20-55); Transferrin 250 mg/dL (203-362)
[2020-11-14] MEDS ORDERED: Iron Sucrose Complex 400 MG in 0.9 % Sodium Chloride 250 ML IVPB ONE (07:38)
[2020-11-14] MEDS ORDERED: Spironolactone 25 MG TABLET PO SCH (09:00)
[2020-11-14] MEDS: carvediloL 6.25 MG TABLET PO SCH (09:21)
[2020-11-14] MEDS: Multivit/Ca/Min/Fe/FA 1 TAB TABLET PO SCH (09:21)
[2020-11-14] MEDS: Calcium Gluconate 1gm/50mL 1 GM/50 ML BAG IVPB SCH ×2 (09:42→11:26)
[2020-11-14] MEDS ORDERED: Ipratropium/Albuterol Neb 3 ML IH PRN (13:46)
[2020-11-14] MEDS: Pantoprazole 40 MG VIAL IVP SCH (16:25)
[2020-11-14] MEDS ORDERED: SODIUM CHLORIDE/NAHCO3/KCL/PEG 4,000 ML SOLN.RECON PO ONE (17:00)
[2020-11-15 04:57] LABS: Hematocrit 21.4 % (37.5-50.1); Mean Corpuscular HGB Conc 32.7 g/dL (31.6-35.5); Mean Corpuscular Hemoglobin 28.3 pg (28.0-33.3); Mean Corpuscular Volume 86.6 fL (83.0-100.0); Platelet Count 230 K/mcL (140-400); Red Blood Count 2.47 M/mcL (4.19-5.50); Red Cell Distribution Width 15.8 % (11.5-14.5); White Blood Count 11.3 K/mcL (4.3-11.1)
[2020-11-15 05:17] LABS: BUN/Creatinine Ratio 32 (6-26); Blood Urea Nitrogen 29 mg/dL (8-23); Calcium 8.4 mg/dL (8.6-10.3); Carbon Dioxide 22 mEq/L (23-29); Chloride 103 mEq/L (98-107); Glucose 169 mg/dL (70-105); Osmolality,Calculated 290 (280-300); Phosphorous 3.4 mg/dL (2.7-4.5); Potassium 4.3 mEq/L (3.5-5.1); Sodium 135 mEq/L (136-145); eGFR For African Americans > 60 (> 60); eGFR For Non-African Americans > 60 (> 60)
[2020-11-15] MEDS ORDERED: 0.9 % Sodium Chloride 250 ML ONE (06:21)
[2020-11-15] MEDS ORDERED: Lidocaine -MPF 2% 5 ML VIAL ONE (07:16)
[2020-11-15] MEDS ORDERED: *HR* Propofol 200 MG/20 ML VIAL IVP ONE (07:16)
[2020-11-15] MEDS ORDERED: *HR* Succinylcholine 200 MG/10 ML VIAL IVP ONE (07:16)
[2020-11-15] MEDS: Multivit/Ca/Min/Fe/FA 1 TAB TABLET PO SCH (08:11)
[2020-11-15] MEDS: Pantoprazole 40 MG VIAL IVP SCH (08:11)
[2020-11-15] MEDS ORDERED: *HR* Phenylephrine 10 MG/ML VIAL ONE (08:39)
[2020-11-15] MEDS: Diphenoxylate/Atropine 1 TAB TABLET PO SCH ×2 (15:07→21:43)
[2020-11-15] MEDS ORDERED: Melatonin 3 MG TABLET PO PRN (15:16)
[2020-11-15 16:37] LABS: Hematocrit 22.1 % (37.5-50.1); Hemoglobin 7.4 g/dL (12.9-16.9)
[2020-11-15] MEDS: Insulin LISPRO 300 UNITS/3 ML VIAL SUBQ SCH (18:14)
[2020-11-16 02:46] LABS: Hematocrit 22.4 % (37.5-50.1); Hemoglobin 7.5 g/dL (12.9-16.9); Mean Corpuscular HGB Conc 33.5 g/dL (31.6-35.5); Mean Corpuscular Hemoglobin 28.6 pg (28.0-33.3); Mean Corpuscular Volume 85.5 fL (83.0-100.0); Mean Platelet Volume 10.3 fL (9.4-12.4); Platelet Count 215 K/mcL (140-400); Red Blood Count 2.62 M/mcL (4.19-5.50); Red Cell Distribution Width 15.7 % (11.5-14.5); White Blood Count 12.3 K/mcL (4.3-11.1)
[2020-11-16 03:04] LABS: BUN/Creatinine Ratio 26 (6-26); Blood Urea Nitrogen 23 mg/dL (8-23); Calcium 8.1 mg/dL (8.6-10.3); Carbon Dioxide 25 mEq/L (23-29); Chloride 105 mEq/L (98-107); Glucose 132 mg/dL (70-105); Osmolality,Calculated 284 (280-300); Phosphorous 2.9 mg/dL (2.7-4.5); Potassium 3.9 mEq/L (3.5-5.1); Sodium 134 mEq/L (136-145); eGFR For African Americans > 60 (> 60); eGFR For Non-African Americans > 60 (> 60)
[2020-11-16 07:14] LABS: Bilirubin,Direct 0.2 mg/dL (0.0-0.2); Bilirubin,Indirect 0.6 mg/dL (0.0-1.0); Bilirubin,Total 0.8 mg/dL (0.3-1.0)
[2020-11-16] MEDS: Insulin LISPRO 300 UNITS/3 ML VIAL SUBQ SCH ×2 (07:39→12:36)
[2020-11-16] MEDS: Diphenoxylate/Atropine 1 TAB TABLET PO SCH (08:07)
[2020-11-16] MEDS: Multivit/Ca/Min/Fe/FA 1 TAB TABLET PO SCH (08:07)
[2020-11-16] MEDS ORDERED: Spironolactone 25 MG TABLET PO SCH (09:00)
[2020-11-16] MEDS ORDERED: 0.9 % Sodium Chloride 250 ML ONE (10:40)
[2020-11-16 10:53] VITALS: O2SAT 100
[2020-11-16 12:44] VITALS: BP 122/72; PULSE 74; TEMP 98
== END 2020-11-16 13:50 | disposition home or self-care (01) | DRG 920 ==
LOC: SUATTDRO → EMEROOARM 14:09 → 3ANU 14:09 → SUATTDRO 17:42 → 3ANU 18:42
PROVIDERS: ADMIT Internal Medicine; ATTEND Internal Medicine

== ENCOUNTER 2021-12-08 17:22 | Observation (INO) ==
[2021-12-08 18:56] LABS: Basophils % 0.1 %; Eosinophils # 0.1 K/mcL (0.0-0.6); Eosinophils % 0.9 %; Hematocrit 38.2 % (37.5-50.1); Hemoglobin 12.3 g/dL (12.9-16.9); Immature Granulocytes % 0.5 % (0-4); Lymphocytes # 1.2 K/mcL (0.6-4.6); Lymphocytes % 13.3 %; Mean Corpuscular HGB Conc 32.2 g/dL (31.6-35.5); Mean Corpuscular Hemoglobin 26.5 pg (28.0-33.3); Mean Corpuscular Volume 82.2 fL (83.0-100.0); Mean Platelet Volume 9.8 fL (9.4-12.4); Monocytes # 0.9 K/mcL (0.0-1.3); Monocytes % 10.4 %; Neutrophils # 6.5 K/mcL (1.6-8.9); Platelet Count 258 K/mcL (140-400); Red Blood Count 4.65 M/mcL (4.19-5.50); Red Cell Distribution Width 17.1 % (11.5-14.5); Segmented Neutrophils % 74.8 %; White Blood Count 8.7 K/mcL (4.3-11.1)
[2021-12-08 18:58] LABS: INR 1.5; Prothrombin Time 16.5 Seconds (9.4-12.1)
[2021-12-08 19:25] LABS: Bacteria,Urine Few per hpf (None-Few); Bilirubin,Urine Negative (Negative); Blood,Urine Negative (Negative); Clarity,Urine Clear (Clear); Color,Urine Yellow (Yellow); Glucose,Urine (UA) Normal (Normal); Hyaline Casts,Urine Few per lpf (None Seen); Ketones,Urine Trace mg/dL (Negative); Leukocyte Esterase,Urine Negative (Negative); Mucus,Urine Moderate per lpf (None-Few); Nitrite,Urine Negative (Negative); PH,Urine 6.5 pH Units (5.0-8.0); Protein,Urine 70 mg/dL (Neg-Trace); Specific Gravity,Urine 1.029 (1.010-1.025); WBC,Urine 0-3 per hpf (0-3)
[2021-12-08 19:25] LABS: BUN/Creatinine Ratio 25 (6-26); Blood Urea Nitrogen 24 mg/dL (8-23); Calcium 9.5 mg/dL (8.6-10.3); Carbon Dioxide 24 mEq/L (23-29); Chloride 98 mEq/L (98-107); Glucose 186 mg/dL (70-105); Magnesium 1.7 mg/dL (1.6-2.6); Osmolality,Calculated 285 (280-300); Potassium 4.1 mEq/L (3.5-5.1); Sodium 133 mEq/L (136-145); Troponin I < 0.03 ng/mL (< 0.04)
[2021-12-08 20:31] LABS: Amphetamine Screen,Urine Negative ng/mL (Cutoff=1000); Barbiturate Screen,Urine Negative ng/mL (Cutoff=200); Benzodiazepines Screen,Urine Negative ng/mL (Cutoff=200); Cannabinoid Screen,Urine Negative ng/mL (Cutoff = 50); Cocaine Screen,Urine Negative ng/mL (Cutoff= 300); Opiate Screen,Urine Negative ng/mL (Cutoff=300); Phencyclidine Screen,Urine Negative ng/mL (Cutoff=25)
[2021-12-08] MEDS ORDERED: Melatonin 3 MG TABLET PO PRN (21:11)
[2021-12-08] MEDS ORDERED: Naloxone 0.4 MG/ML INJ IVP PRN (21:11)
[2021-12-08] MEDS ORDERED: Acetaminophen 325 MG TABLET PO PRN (21:11)
[2021-12-08] MEDS ORDERED: Ondansetron 4 MG/2 ML VIAL IVP PRN (21:11)
[2021-12-08] MEDS ORDERED: Dextrose Gel 15 GM/37.5 ML TUBE PO PRN ×2 (23:43)
[2021-12-08] MEDS ORDERED: D5% in Water 1,000 ML IVC PRN (23:43)
[2021-12-08] MEDS ORDERED: *HR* Dextrose 50 % in Water (Syg) 50 ML SYRINGE IVP PRN (23:43)
[2021-12-09] MEDS: Insulin LISPRO 300 UNITS/3 ML VIAL SUBQ SCH ×4 (01:51→18:31)
[2021-12-09] MEDS: Apixaban 5 MG TABLET PO SCH ×3 (01:54→20:08)
[2021-12-09 02:31] LABS: Hematocrit 38.4 % (37.5-50.1); Hemoglobin 12.1 g/dL (12.9-16.9); Mean Corpuscular HGB Conc 31.5 g/dL (31.6-35.5); Mean Corpuscular Hemoglobin 26.3 pg (28.0-33.3); Mean Corpuscular Volume 83.5 fL (83.0-100.0); Mean Platelet Volume 10.1 fL (9.4-12.4); Platelet Count 277 K/mcL (140-400); Red Cell Distribution Width 17.1 % (11.5-14.5); White Blood Count 8.7 K/mcL (4.3-11.1)
[2021-12-09 02:58] LABS: BUN/Creatinine Ratio 24 (6-26); Blood Urea Nitrogen 24 mg/dL (8-23); Calcium 9.7 mg/dL (8.6-10.3); Carbon Dioxide 27 mEq/L (23-29); Chloride 98 mEq/L (98-107); Glucose 92 mg/dL (70-105); Osmolality,Calculated 282 (280-300); Potassium 4.1 mEq/L (3.5-5.1); Sodium 134 mEq/L (136-145); Troponin I < 0.03 ng/mL (< 0.04)
[2021-12-09] MEDS: Ascorbic Acid 500 MG TABLET PO SCH ×2 (07:50→20:09)
[2021-12-09] MEDS: carvediloL 25 MG TABLET PO SCH ×2 (07:50→20:09)
[2021-12-09] MEDS ORDERED: Diphenoxylate/Atropine 1 TAB TABLET PO PRN (13:21)
[2021-12-10] MEDS: Insulin LISPRO 300 UNITS/3 ML VIAL SUBQ SCH ×4 (00:21→17:04)
[2021-12-10] MEDS: carvediloL 25 MG TABLET PO SCH (07:21)
[2021-12-10] MEDS: Ascorbic Acid 500 MG TABLET PO SCH ×2 (07:21→20:41)
[2021-12-10] MEDS: Apixaban 5 MG TABLET PO SCH ×2 (07:21→20:41)
[2021-12-10] MEDS: UBIDECARENONE 50 MG PO SCH (08:12)
[2021-12-10] MEDS: Multivit/Ca/Min/Fe/FA 1 TAB TABLET PO SCH (09:06)
[2021-12-10] MEDS: Vitamin E 200 UNIT (90MG) CAPSULE PO SCH (09:06)
[2021-12-10 19:23] LABS: Magnesium 1.9 mg/dL (1.6-2.6); Potassium 4.1 mEq/L (3.5-5.1)
[2021-12-10] MEDS: Metoprolol XL (24 HR) Succ 50 MG TAB.ER.24H PO SCH (23:13)
[2021-12-11] MEDS: Insulin LISPRO 300 UNITS/3 ML VIAL SUBQ SCH ×3 (00:03→12:45)
[2021-12-11] MEDS: UBIDECARENONE 50 MG PO SCH (07:03)
[2021-12-11] MEDS: Vitamin E 200 UNIT (90MG) CAPSULE PO SCH (08:10)
[2021-12-11] MEDS: Metoprolol XL (24 HR) Succ 50 MG TAB.ER.24H PO SCH (08:10)
[2021-12-11] MEDS: Multivit/Ca/Min/Fe/FA 1 TAB TABLET PO SCH (08:11)
[2021-12-11] MEDS: Apixaban 5 MG TABLET PO SCH (08:11)
[2021-12-11] MEDS: Ascorbic Acid 500 MG TABLET PO SCH (08:11)
[2021-12-11 10:31] VITALS: BP 131/77; PULSE 66; TEMP 97.6; O2SAT 97
== END 2021-12-11 14:51 | disposition home or self-care (01) ==
LOC: EMEROOARM 17:22 → 3BNU 17:22 → SUATTDRO 20:43 → 3BNU 21:26
PROVIDERS: ADMIT Internal Medicine; ATTEND Nurse Practitioner